=== PATIENT | male | born 1940 ===

== ENCOUNTER 2017-01-24 20:38 | Inpatient (IN) | payer OTHER, MEDICARE ==
[2017-01-24] MEDS ORDERED: Sodium Chloride 0.9% 500 ML IV STA (21:20)
[2017-01-24 21:53] LABS: BASO % 0.4 % (0.0-2.0); EOS # 0.3 K/uL (0.0-0.7); EOS % 3.5 % (0.0-4.0); HEMATOCRIT 33.2 % (35.0-51.0); LYMPH # 1.6 K/uL (1.0-4.3); LYMPH % 19.8 % (20.0-40.0); MEAN CELL VOLUME 91.8 fl (80.0-94.0); MEAN CORPUSCULAR HEMOGLOBIN 30.8 pg (27.0-31.0); MEAN CORPUSCULAR HGB CONC 33.6 g/dL (33.0-37.0); MEAN PLATELET VOLUME 9.6 fl (7.2-11.7); MONO # 0.6 K/uL (0.0-0.8); MONO % 6.8 % (0.0-10.0); NEUT # 5.7 K/uL (1.8-7.0); NEUT % 69.5 % (50.0-75.0); NRBC % 0.1 % (0.0-0.0); RED CELL DISTRIBUTION WIDTH 13.5 % (11.5-14.5); WHITE BLOOD COUNT 8.3 K/uL (4.8-10.8)
[2017-01-24 21:57] LABS: ALB/GLOB RATIO 1.1 (1.0-2.1); ALKALINE PHOSPHATASE 62 U/L (38-126); ALT/SGPT 23 U/L (21-72); AST/SGOT 19 U/L (17-59); BILIRUBIN,TOTAL 0.6 mg/dl (0.2-1.3); BLOOD UREA NITROGEN 22 mg/dl (9-20); CALCIUM 9.5 mg/dL (8.4-10.2); CARBON DIOXIDE 29 mmol/L (22-30); CHLORIDE 105 mmol/L (98-107); GFR AFRICAN-AMERICAN > 60; GLUCOSE,RANDOM 270 mg/dL (75-110); LIPASE 76 U/L (23-300); MAGNESIUM 1.5 MG/DL (1.6-2.3); PHOSPHOROUS 3.3 mg/dl (2.5-4.5); SODIUM 148 mmol/l (132-148); TOTAL PROTEIN 7.4 G/DL (6.3-8.2)
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
[2017-01-24 22:13] LABS: PARTIAL THROMBOPLASTIN TIME 28.2 SECONDS (23.3-32.5)
[2017-01-24 22:27] LABS: THYROID STIMULATING HORMONE 1.09 mIU/ML (0.46-4.68)
--- NOTE | 2017-01-24 23:58 | CT ---
EXAM: CT Head Without Intravenous Contrast CLINICAL HISTORY: 76 years old, male; Pain; Headache; Headache not specified; Additional info: AMS TECHNIQUE: Axial computed tomography images of the head/brain without intravenous contrast. This CT exam was performed using one or more of the following dose reduction techniques: automated exposure control, adjustment of the mA and/or kV according to patient size, and/or use of iterative reconstruction technique. Coronal and sagittal reformatted images were created and reviewed. EXAM DATE/TIME: Exam ordered 01/24/2017 9:20 PM COMPARISON: No relevant prior studies available. FINDINGS: Brain: ventricles are concordant with sulci, noting prominence. extensive periventricular hypoattenuation in keeping with small vessel ischemic disease. No hemorrhage. Ventricles: See above. Bones/joints: There are no fractures of the calvarium. Soft tissues: Unremarkable. Sinuses: Paranasal sinuses with no findings to suggest acute sinusitis. Mastoid air cells: Bilaterally, there is sclerosis of the mastoid air cells, there is no fluid to suggest an acute process however correlation and comparison to previous examinations from possible previous mastoiditis and/or procedures is recommended. Other findings: No previous imaging is available. IMPRESSION: No intracranial hemorrhage. No fractures. No evidence of acute sinusitis. Please compare to previous and correlate for previous pathology of the mastoid air cells, there is no fluid to suggest acute infection of the mastoids at this time. No abnormality suspicious for acute stroke by noncontrast head CT. If there is clinical suspicion for stroke, please note that other modalities are considered to be more sensitive than noncontrast head CT.
[2017-01-25 00:05] LABS: RBC URINE 1 /hpf (0-3); URINE BACTERIA RARE (<OCC); URINE BILIRUBIN NEGATIVE (NEGATIVE); URINE BLOOD NEGATIVE (NEGATIVE); URINE COLOR YELLOW (YELLOW); URINE GLUCOSE (UA) >=500 mg/dL (Normal); URINE KETONE TRACE mg/dL (NEGATIVE); URINE LEUKOCYTE ESTERASE NEG Leu/uL (Negative); URINE PROTEIN NEGATIVE (NEGATIVE); WBC URINE < 1 /hpf (0-5)
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
[2017-01-25] MEDS ORDERED: Magnesium Sulfate 2 GM in Sodium Chloride 0.9% 100 ML IVPB ONE (07:26)
[2017-01-25 09:34] LABS: BASO % 0.6 % (0.0-2.0); EOS # 0.3 K/uL (0.0-0.7); EOS % 4.3 % (0.0-4.0); HEMATOCRIT 34.7 % (35.0-51.0); LYMPH % 26.8 % (20.0-40.0); MEAN CELL VOLUME 92.7 fl (80.0-94.0); MEAN CORPUSCULAR HGB CONC 33.5 g/dL (33.0-37.0); MEAN PLATELET VOLUME 9.9 fl (7.2-11.7); MONO # 0.5 K/uL (0.0-0.8); MONO % 6.4 % (0.0-10.0); NEUT # 4.7 K/uL (1.8-7.0); NEUT % 61.9 % (50.0-75.0); RED CELL DISTRIBUTION WIDTH 13.5 % (11.5-14.5); WHITE BLOOD COUNT 7.6 K/uL (4.8-10.8)
[2017-01-25 10:04] LABS: BLOOD UREA NITROGEN 21 mg/dl (9-20); CALCIUM 9.5 mg/dL (8.4-10.2); CARBON DIOXIDE 24 mmol/L (22-30); CHLORIDE 108 mmol/L (98-107); GFR AFRICAN-AMERICAN > 60; GLUCOSE,RANDOM 173 mg/dL (75-110); POTASSIUM 3.8 MMOL/L (3.6-5.0); SODIUM 148 mmol/l (132-148)
--- NOTE | 2017-01-25 10:12 | RAD ---
HISTORY: Altered mental status COMPARISON: No prior. FINDINGS: LUNGS: Status the lungs are well inflated and clear. PLEURA: No significant pleural effusion identified, no pneumothorax apparent. CARDIOVASCULAR: Normal. OSSEOUS STRUCTURES: No significant abnormalities. VISUALIZED UPPER ABDOMEN: Normal. OTHER FINDINGS: None. IMPRESSION: No active pulmonary disease.
[2017-01-25 10:30] LABS: CARCINOEMBRYONIC ANTIGEN 3.3 ng/mL (0-3.0); PROSTATE SPECIFIC ANTIGEN 0.867 ng/ML (0.00-4.0)
[2017-01-25] MEDS: Enoxaparin 40 mg Syringe SC SCH (10:30)
[2017-01-25] MEDS: Insulin Lispro (humaLOG) 100 Units/ml Inj SC SCH ×3 (12:00→21:14)
[2017-01-25 17:23] LABS: CA 19-9 57.5 U/mL (0-37)
[2017-01-26] MEDS: Insulin Lispro (humaLOG) 100 Units/ml Inj SC SCH ×4 (06:56→22:12)
[2017-01-26] MEDS: Enoxaparin 40 mg Syringe SC SCH (09:08)
--- NOTE | 2017-01-26 09:40 | CP.PCM.PN ---
Subjective - Date & Time of Evaluation Date of Evaluation: 01/26/17 Time of Evaluation: 09:35 Objective - Vital Signs/Intake and Output Vital Signs (last 24 hours): Temp Pulse Resp BP Pulse Ox 97.4 F L 76 20 148/90 100 01/26/17 08:00 01/26/17 08:00 01/26/17 08:00 01/26/17 08:00 01/26/17 08:00 - Medications Medications: Current Medications Clopidogrel Bisulfate (Plavix) 75 mg PO DAILY [facility] Last Admin: 01/26/17 09:08 Dose: 75 mg Enoxaparin Sodium (Lovenox) 40 mg SC DAILY [facility] PRN Reason: Protocol Last Admin: 01/26/17 09:08 Dose: 40 mg Glipizide (Glucotrol) 5 mg PO BID [facility] Last Admin: 01/26/17 09:08 Dose: 5 mg Hydrochlorothiazide (Hydrodiuril) 25 mg PO DAILY [facility] Last Admin: 01/26/17 09:08 Dose: 25 mg Insulin Human Lispro (Humalog) 0 units SC [facility] PRN Reason: Protocol Last Admin: 01/26/17 06:56 Dose: 1 u - Labs Labs: 01/25/17 09:00 01/25/17 09:00 PT 11.6 SECONDS (9.6-11.2) H 01/24/17 21:41 INR 1.12 (0.92-1.08) H 01/24/17 21:41 APTT 28.2 SECONDS (23.3-32.5) 01/24/17 21:41 Assessment and Plan (1) Altered mental status Status: Acute (2) Diabetes mellitus Status: Chronic (3) Hypertension Status: Chronic (4) Weight loss Assessment & Plan: High CA 19-[address] Abdomen/Pelvis with PO/IV Contrast Fecal Occult Blood Status: Suspected (5) Falls Status: Acute
[2017-01-26] MEDS: Iohexol 240 (50 ml) PO ONE ×2 (13:49→15:03)
[2017-01-26] MEDS ORDERED: Iohexol 300 100 ML IJ ONE ×2 (15:13→15:20)
[2017-01-26] MEDS ORDERED: Sodium Chloride 0.9% 50 ML IV ONE (15:13)
[2017-01-27] MEDS: Insulin Lispro (humaLOG) 100 Units/ml Inj SC SCH ×4 (07:03→23:43)
[2017-01-27] MEDS: Enoxaparin 40 mg Syringe SC SCH (09:16)
--- NOTE | 2017-01-27 18:55 | CARD ---
APPROVED REPORT EKG Measurement Heart [id number] HI [id number] <Conclusion> Normal sinus rhythm Low voltage QRS Borderline ECG
--- NOTE | 2017-01-27 23:17 | CP.PCM.PN ---
Subjective - Date & Time of Evaluation Date of Evaluation: 01/27/17 Time of Evaluation: 16:15 Objective - Vital Signs/Intake and Output Vital Signs (last 24 hours): Temp Pulse Resp BP Pulse Ox 98.7 F 113 H 20 112/77 99 01/27/17 19:40 01/27/17 19:55 01/27/17 19:40 01/27/17 19:40 01/27/17 19:40 - Medications Medications: Current Medications Clopidogrel Bisulfate (Plavix) 75 mg PO DAILY [facility] Last Admin: 01/27/17 09:16 Dose: 75 mg Cyanocobalamin (Vitamin B12 1000 Mcg Tab) 1,000 mcg PO DAILY [facility] Last Admin: 01/27/17 09:16 Dose: 1,000 mcg Enoxaparin Sodium (Lovenox) 40 mg SC DAILY [facility] PRN Reason: Protocol Last Admin: 01/27/17 09:16 Dose: 40 mg Glipizide (Glucotrol) 5 mg PO BID [facility] Last Admin: 01/27/17 16:41 Dose: 5 mg Hydrochlorothiazide (Hydrodiuril) 25 mg PO DAILY [facility] Last Admin: 01/27/17 09:16 Dose: 25 mg Insulin Human Lispro (Humalog) 0 units SC [facility]S [facility] PRN Reason: Protocol Last Admin: 01/27/17 16:41 Dose: 3 u - Labs Labs: 01/25/17 09:00 01/25/17 09:00 PT 11.6 SECONDS (9.6-11.2) H 01/24/17 21:41 INR 1.12 (0.92-1.08) H 01/24/17 21:41 APTT 28.2 SECONDS (23.3-32.5) 01/24/17 21:41 Assessment and Plan (1) Altered mental status Status: Acute (2) Diabetes mellitus Status: Chronic (3) Hypertension Status: Chronic (4) Weight loss Status: Suspected (5) Falls Status: Acute
[2017-01-28 07:08] LABS: BASO % 0.3 % (0.0-2.0); EOS # 0.4 K/uL (0.0-0.7); EOS % 3.3 % (0.0-4.0); LYMPH # 2.1 K/uL (1.0-4.3); LYMPH % 18.4 % (20.0-40.0); MEAN CELL VOLUME 90.8 fl (80.0-94.0); MEAN CORPUSCULAR HEMOGLOBIN 31.2 pg (27.0-31.0); MEAN CORPUSCULAR HGB CONC 34.4 g/dL (33.0-37.0); MEAN PLATELET VOLUME 10.1 fl (7.2-11.7); MONO % 8.3 % (0.0-10.0); NEUT % 69.7 % (50.0-75.0); NRBC % 0.1 % (0.0-0.0); RED CELL DISTRIBUTION WIDTH 13.4 % (11.5-14.5)
[2017-01-28 07:42] LABS: BLOOD UREA NITROGEN 24 mg/dl (9-20); CALCIUM 9.7 mg/dL (8.4-10.2); CARBON DIOXIDE 26 mmol/L (22-30); CHLORIDE 98 mmol/L (98-107); GFR AFRICAN-AMERICAN > 60; GLUCOSE,RANDOM 145 mg/dL (75-110); POTASSIUM 3.9 MMOL/L (3.6-5.0); SODIUM 139 mmol/l (132-148)
[2017-01-28 07:52] LABS: WHITE BLOOD COUNT 11.5 K/uL (4.8-10.8)
[2017-01-28] MEDS: Insulin Lispro (humaLOG) 100 Units/ml Inj SC SCH ×4 (08:35→22:05)
[2017-01-28] MEDS: Enoxaparin 40 mg Syringe SC SCH (08:36)
--- NOTE | 2017-01-28 10:32 | CP.PCM.PN ---
Subjective - Date & Time of Evaluation Date of Evaluation: 01/28/17 Time of Evaluation: 10:10 Objective - Vital Signs/Intake and Output Vital Signs (last 24 hours): Temp Pulse Resp BP Pulse Ox 97.8 F 107 H 18 112/73 100 01/28/17 09:00 01/28/17 09:00 01/28/17 09:00 01/28/17 09:00 01/28/17 09:00 - Medications Medications: Current Medications Clopidogrel Bisulfate (Plavix) 75 mg PO DAILY [facility] Last Admin: 01/28/17 08:36 Dose: 75 mg Cyanocobalamin (Vitamin B12 1000 Mcg Tab) 1,000 mcg PO DAILY [facility] Last Admin: 01/28/17 08:36 Dose: 1,000 mcg Glipizide (Glucotrol) 5 mg PO BID [facility] Last Admin: 01/28/17 08:34 Dose: 5 mg Hydrochlorothiazide (Hydrodiuril) 25 mg PO DAILY [facility] Last Admin: 01/28/17 08:36 Dose: 25 mg Insulin Human Lispro (Humalog) 0 units SC [facility] PRN Reason: Protocol Last Admin: 01/28/17 08:35 Dose: 1 u - Labs Labs: 01/28/17 04:40 01/28/17 04:35 PT 11.6 SECONDS (9.6-11.2) H 01/24/17 21:41 INR 1.12 (0.92-1.08) H 01/24/17 21:41 APTT 28.2 SECONDS (23.3-32.5) 01/24/17 21:41 Assessment and Plan (1) Diabetes mellitus Status: Chronic (2) Weight loss Status: Suspected (3) Altered mental status Status: Acute (4) Hypertension Status: Chronic (5) Falls Status: Acute
[2017-01-28] MEDS ORDERED: Gadodiamide 287 MG/ML VIAL (15ML) IV ONE ×2 (13:10→14:56)
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
--- NOTE | 2017-01-28 19:45 | CP.PCM.CON ---
History of Present Illness - History of Present Illness History of Present Illness: GI consult requested by Dr Oliveira- History obtained from [employer] and chart as patient is not a good historian and does not answer questions appropriately. This is a 76 year old male, appearing older than stated age with a past medical history of HTN, hyperlipidemia and DM, who was brought to the ER by his daughter for recent altered mental status. As per chart patient has been increasingly confused and forgetful, with daughter additionally noting that he had seemed to be having issues with both urinary frequency and incontinence. As per family it was endorsed taht he has recently lost 80 lbs. I saw him at bedside this afternoon where he was eating chicken and broccoli and had just finished soup. He denies pain, diarrhea, constipation or yellow eyes. He denies recent rectal bleeding. He denies recent hospitalization. He states he came to the hospital to get better. He states he stays with a female partner at home and they dont have sexual relationships but are together. He had no abuse eugene on his body. Review of Systems - Review of Systems All systems: reviewed and no additional remarkable complaints except Review of Systems: Weakness Past Patient History - Past Medical History & Family History Past Medical History?: Yes Past Family History: Reviewed and not pertinent - Past Social History Alcohol: None Drugs: Denies - CARDIAC Hx Hypertension: Yes - NEUROLOGICAL HX Cerebrovascular Accident: Yes (unknown) - ENDOCRINE/METABOLIC Hx Endocrine Disorders: Yes Hx Diabetes Mellitus Type 2: Yes - HEMATOLOGICAL/ONCOLOGICAL Hx AIDS: No Hx Human Immunodeficiency Virus (HIV): No - MUSCULOSKELETAL/RHEUMATOLOGICAL Hx Falls: Yes - GENITOURINARY/GYNECOLOGICAL Hx Incontinence: Yes - PSYCHIATRIC Hx Substance Use: No - ANESTHESIA Hx Anesthesia: No Hx Anesthesia Reactions: No Hx Malignant Hyperthermia: No Has any member of the family had a problem w/ anesthesia?: No Meds Allergies/Adverse Reactions: Allergies Allergy/AdvReac Type Severity Reaction Status Date / Time No Known Allergies Allergy Verified 01/24/17 20:47 - Medications Medications: Current Medications Clopidogrel Bisulfate (Plavix) 75 mg PO DAILY [facility] Last Admin: 01/28/17 08:36 Dose: 75 mg Cyanocobalamin (Vitamin B12 1000 Mcg Tab) 1,000 mcg PO DAILY [facility] Last Admin: 01/28/17 08:36 Dose: 1,000 mcg Glipizide (Glucotrol) 5 mg PO BID [facility] Last Admin: 01/28/17 17:19 Dose: 5 mg Hydrochlorothiazide (Hydrodiuril) 25 mg PO DAILY [facility] Last Admin: 01/28/17 08:36 Dose: 25 mg Insulin Human Lispro (Humalog) 0 units SC ACHS [facility] PRN Reason: Protocol Last Admin: 01/28/17 17:19 Dose: 2 u Physical Exam - Constitutional Appears: Well, Non-toxic, No Acute Distress - Head Exam Head Exam: ATRAUMATIC, NORMAL INSPECTION, NORMOCEPHALIC Additional comments: Anicteric sclera - ENT Exam ENT Exam: Mucous Membranes Moist - Neck Exam Neck exam: Positive for: Normal Inspection - Respiratory Exam Respiratory Exam: Clear to Auscultation Bilateral, NORMAL BREATHING PATTERN - Cardiovascular Exam Cardiovascular Exam: REGULAR RHYTHM, RRR, +S1, +S2 - GI/Abdominal Exam GI & Abdominal Exam: Normal Bowel Sounds, Soft. absent: Tenderness Additional comments: Non tender and non guarding - Extremities Exam Extremities exam: Positive for: normal inspection - Neurological Exam Neurological exam: Alert, Oriented x3 Results - Vital Signs Recent Vital Signs: Last Vital Signs Temp 97.8 F 01/28/17 17:00 Pulse 100 H 01/28/17 17:00 Resp 22 01/28/17 17:00 BP 117/79 01/28/17 17:00 Pulse Ox 99 01/28/17 17:00 - Labs Result Diagrams: 01/28/17 04:40 01/28/17 04:35 Labs: Laboratory Results - last 24 hr 01/27/17 01/28/17 01/28/17 21:33 04:35 04:40 WBC 11.5 H D RBC 3.97 L Hgb 12.4 Hct 36.0 MCV 90.8 MCH 31.2 H MCHC 34.4 RDW 13.4 Plt Count 201 MPV 10.1 Neut % (Auto) 69.7 Lymph % (Auto) 18.4 L Dolores % (Auto) 8.3 Eos % (Auto) 3.3 Baso % (Auto) 0.3 Neut # 8.0 H Lymph # 2.1 Dolores # 1.0 H Eos # 0.4 Baso # 0.0 Sodium 139 Potassium 3.9 Chloride 98 Carbon Dioxide 26 Anion Gap 19 BUN 24 H Creatinine 0.8 Est GFR ( Amer) > 60 Est GFR (Non-Af Amer) > 60 POC Glucose (mg/dL) 161 H Random Glucose 145 H Calcium 9.7 Vitamin B12 334 01/28/17 01/28/17 01/28/17 05:25 11:11 15:59 WBC RBC Hgb Hct MCV MCH MCHC RDW Plt Count MPV Neut % (Auto) Lymph % (Auto) Dolores % (Auto) Eos % (Auto) Baso % (Auto) Neut # Lymph # Dolores # Eos # Baso # Sodium Potassium Chloride Carbon Dioxide Anion Gap BUN Creatinine Est GFR ( Amer) Est GFR (Non-Af Amer) POC Glucose (mg/dL) 167 H 449 H* 238 H Random Glucose Calcium Vitamin B12 - Imaging and Cardiology CT scan - abdomen Status: Image reviewed by me (Stool in colon and cholelithiasis. Mild CBD dilatation) Assessment & Plan - Assessment and Plan (Free Text) Assessment: This is a 76 yr old M with comorbidities admitted with new change in mental status and urinary incontinence and elevated CA 19-9. CT abdomen result in [facility] pending. LFT normal. As per family concern for weight loss and decreased appetite but I saw him eating. He has decreased B12 on biochemical testing that can contribute to mental status changes and extra pyramidal signs. Should get hematology consult. CA 19-[address] abdomen with IV contrast does not show any mass lesions although this was not dedicated pancreatic protocol CT scan. Will be prudent to ask daughter if patient has had endoscopic evaluation in the past. Plan: Hematology consult for low B 12 levels Elevated CA 19-9- CT scan with no pancreatic lesions Consider MRI brain Endoscopic evaluation history to be obtained from family in event of weight loss and elevated CA 19-9 Calorie count Neurology consult reviewed and appreciated Will follow - Date & Time Date: 01/28/17 Time: 19:45
--- NOTE | 2017-01-28 19:46 | MRI ---
EXAM: MR Head Without and With Intravenous Contrast CLINICAL HISTORY: 76 years old, male; Signs and symptoms; Altered mental status/memory loss TECHNIQUE: Magnetic resonance images of the head/brain without and with intravenous contrast in multiple planes. CONTRAST: 13 mL of OMNISCAN administered intravenously. EXAM DATE/TIME: 01/28/2017 11:01 AM COMPARISON: Prior head CT of 01/24/2017 FINDINGS: BRAIN: Very small 6 mm focus of restricted diffusion in the left parietal lobe, image 19 of series 3, compatible with focus of acute ischemia. This involves the subcortical white matter, and is most likely a lacunar/small vessel type infarct. There are no findings to suggest an acute, large territorial infarct. Punctate focus of chronic hemorrhage in the left high frontal lobe. Areas of increased T2 signal seen in the white matter bilaterally, nonspecific in appearance, but most likely representing chronic small vessel ischemic changes, in a patient of this age. Diffuse, age-related cortical atrophy and ventriculomegaly. No other significant abnormality identified. No acute extra-axial fluid collections visualized. No evidence of significant abnormal intracranial enhancement. No signal abnormality seen to suggest acute intracranial hemorrhage. VENTRICLES: See above. BONES/JOINTS: No acute abnormality identified. SINUSES: No evidence of sinus fluid levels. MASTOID AIR CELLS: No evidence of diffuse mastoiditis. IMPRESSION: - Findings compatible with a very small 6 mm focus of acute ischemia in the left parietal lobe white matter, most likely a lacunar/small vessel type infarct. - See above for remaining findings.
[2017-01-29] MEDS: Insulin Lispro (humaLOG) 100 Units/ml Inj SC SCH ×4 (06:52→22:02)
[2017-01-29 10:44] LABS: CHOLESTEROL 197 mg/dL (0-199)
--- NOTE | 2017-01-29 10:53 | CP.PCM.PN ---
Subjective - Date & Time of Evaluation Date of Evaluation: 01/29/17 Time of Evaluation: 10:15 Objective - Vital Signs/Intake and Output Vital Signs (last 24 hours): Temp Pulse Resp BP Pulse Ox 98.1 F 92 H 20 120/75 100 01/29/17 08:12 01/29/17 08:12 01/29/17 08:12 01/29/17 08:12 01/29/17 08:12 - Medications Medications: Current Medications Aspirin (Aspirin Chewable) 81 mg PO DAILY [facility] Atorvastatin Calcium (Lipitor) 40 mg PO HS [facility] Clopidogrel Bisulfate (Plavix) 75 mg PO DAILY [facility] Last Admin: 01/29/17 09:16 Dose: 75 mg Cyanocobalamin (Vitamin B12 1000 Mcg Tab) 1,000 mcg PO DAILY [facility] Last Admin: 01/29/17 09:16 Dose: 1,000 mcg Enoxaparin Sodium (Lovenox) 40 mg SC DAILY [facility] PRN Reason: Protocol Glipizide (Glucotrol) 5 mg PO BID [facility] Last Admin: 01/29/17 09:16 Dose: 5 mg Hydrochlorothiazide (Hydrodiuril) 25 mg PO DAILY [facility] Last Admin: 01/29/17 09:16 Dose: 25 mg Insulin Human Lispro (Humalog) 0 units SC ACHS [facility] PRN Reason: Protocol Last Admin: 01/29/17 06:52 Dose: 1 u - Labs Labs: 01/28/17 04:40 01/28/17 04:35 PT 11.6 SECONDS (9.6-11.2) H 01/24/17 21:41 INR 1.12 (0.92-1.08) H 01/24/17 21:41 APTT 28.2 SECONDS (23.3-32.5) 01/24/17 21:41 Assessment and Plan (1) Diabetes mellitus Status: Chronic (2) Weight loss Status: Suspected (3) Altered mental status Status: Acute (4) Hypertension Status: Chronic (5) Falls Status: Acute
--- NOTE | 2017-01-29 12:24 | CP.PCM.PN ---
Subjective - Date & Time of Evaluation Date of Evaluation: 01/29/17 Time of Evaluation: 12:22 - Subjective Subjective: RFV: Weight loss S: No acute events. No new complaints. Getting carotid dopplers. No bleeding. Objective - Vital Signs/Intake and Output Vital Signs (last 24 hours): Temp Pulse Resp BP Pulse Ox 97.4 F L 98 H 18 103/67 96 01/29/17 12:19 01/29/17 12:19 01/29/17 12:19 01/29/17 12:19 01/29/17 12:19 - Medications Medications: Current Medications Aspirin (Aspirin Chewable) 81 mg PO DAILY [facility] Atorvastatin Calcium (Lipitor) 40 mg PO HS [facility] Clopidogrel Bisulfate (Plavix) 75 mg PO DAILY [facility] Last Admin: 01/29/17 09:16 Dose: 75 mg Cyanocobalamin (Vitamin B12 1000 Mcg Tab) 1,000 mcg PO DAILY [facility] Last Admin: 01/29/17 09:16 Dose: 1,000 mcg Enoxaparin Sodium (Lovenox) 40 mg SC DAILY [facility] PRN Reason: Protocol Glipizide (Glucotrol) 5 mg PO BID [facility] Last Admin: 01/29/17 09:16 Dose: 5 mg Hydrochlorothiazide (Hydrodiuril) 25 mg PO DAILY [facility] Last Admin: 01/29/17 09:16 Dose: 25 mg Insulin Human Lispro (Humalog) 0 units SC ACHS [facility] PRN Reason: Protocol Last Admin: 01/29/17 06:52 Dose: 1 u - Labs Labs: 01/28/17 04:40 01/28/17 04:35 PT 11.6 SECONDS (9.6-11.2) H 01/24/17 21:41 INR 1.12 (0.92-1.08) H 01/24/17 21:41 APTT 28.2 SECONDS (23.3-32.5) 01/24/17 21:41 - Constitutional Appears: Chronically Ill - Head Exam Head Exam: ATRAUMATIC, NORMOCEPHALIC - Eye Exam Eye Exam: Normal appearance - ENT Exam ENT Exam: Mucous Membranes Moist, Normal Oropharynx - Respiratory Exam Respiratory Exam: NORMAL BREATHING PATTERN. absent: Respiratory Distress - Cardiovascular Exam Cardiovascular Exam: +S1, +S2 - GI/Abdominal Exam GI & Abdominal Exam: Soft. absent: Tenderness - Neurological Exam Neurological Exam: Altered Assessment and Plan - Assessment and Plan (Free Text) Assessment: 76 yr old Male admitted with altered mental status, urinary incontinence and elevated CA 19-9 as well as weight loss. 1. Weight loss 2. 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
--- NOTE | 2017-01-29 12:36 | US ---
PROCEDURE: Carotid vertebral duplex sonography HISTORY: stroke COMPARISON: None available. TECHNIQUE: Grayscale, color Doppler and spectral Doppler assessment of the carotid system bilaterally. This includes common carotid, internal carotid arteries Vertebral artery assessment with respect to direction of flow (antegrade or retrograde) FINDINGS: RIGHT carotid system: Assessment of plaque: No significant/ appreciable plaque formation. Isolated calcified plaque noted in the common carotid artery. Peak systolic ICA velocity: 74 cm/sec End-diastolic velocity: 20 cm/sec ICA/CCA ratio: 1.3 Vertebral artery flow: Antegrade LEFT carotid system: Assessment of plaque: Heterogeneous partially calcified plaque commencing distal left common carotid extending into the bulb region. Extensive calcified plaque in the proximal and mid left ICA. Peak systolic ICA velocity: 192 cm/sec End-diastolic velocity: 50 cm/sec ICA/CCA ratio: 2.6 Vertebral artery flow: Antegrade IMPRESSION: Right ICA degree of stenosis: Less than 50% Left ICA degree of stenosis: 50- 69%. Reference Internal Carotid Artery (ICA) Peak Systolic Velocity (PSV) for above: 1. Less than 50% stenosis less than 125 cm/s peak systolic velocity 2. 50-69% stenosis 125-230cm/s peak systolic velocity 3. Greater than 70% but less than near occlusion greater than 230 cm/s peak systolic velocity
[2017-01-29] MEDS: Enoxaparin 40 mg Syringe SC SCH (13:53)
--- NOTE | 2017-01-29 15:58 | CP.PCM.PN ---
Subjective - Date & Time of Evaluation Date of Evaluation: 01/29/17 Time of Evaluation: 15:56 - Subjective Subjective: Mr. López was seen and examined today at bedside. He continues to exhibit confused thought and speech patterns. He did not have any complaints and there were no acute events overnight. Objective - Vital Signs/Intake and Output Vital Signs (last 24 hours): Temp Pulse Resp BP Pulse Ox 97.4 F L 98 H 18 103/67 96 01/29/17 12:19 01/29/17 12:19 01/29/17 12:19 01/29/17 12:19 01/29/17 12:19 - Medications Medications: Current Medications Aspirin (Aspirin Chewable) 81 mg PO DAILY [facility] Last Admin: 01/29/17 13:52 Dose: Not Given Atorvastatin Calcium (Lipitor) 40 mg PO [facility] Clopidogrel Bisulfate (Plavix) 75 mg PO DAILY [facility] Last Admin: 01/29/17 09:16 Dose: 75 mg Cyanocobalamin (Vitamin B12 1000 Mcg Tab) 1,000 mcg PO DAILY [facility] Last Admin: 01/29/17 09:16 Dose: 1,000 mcg Enoxaparin Sodium (Lovenox) 40 mg SC DAILY [facility] PRN Reason: Protocol Last Admin: 01/29/17 13:53 Dose: 40 mg Glipizide (Glucotrol) 5 mg PO BID [facility] Last Admin: 01/29/17 09:16 Dose: 5 mg Hydrochlorothiazide (Hydrodiuril) 25 mg PO DAILY [facility] Last Admin: 01/29/17 09:16 Dose: 25 mg Insulin Human Lispro (Humalog) [address] [facility] PRN Reason: Protocol Last Admin: 01/29/17 13:53 Dose: 1 u - Labs Labs: 01/28/17 04:40 01/28/17 04:35 PT 11.6 SECONDS (9.6-11.2) H 01/24/17 21:41 INR 1.12 (0.92-1.08) H 01/24/17 21:41 APTT 28.2 SECONDS (23.3-32.5) 01/24/17 21:41 - Constitutional Appears: Well - Head Exam Head Exam: ATRAUMATIC, NORMAL INSPECTION, NORMOCEPHALIC - Eye Exam Eye Exam: EOMI, Normal appearance, PERRL - Neck Exam Neck Exam: Full ROM, Normal Inspection. absent: Lymphadenopathy - Respiratory Exam Respiratory Exam: Clear to Ausculation Bilateral, NORMAL BREATHING PATTERN - Cardiovascular Exam Cardiovascular Exam: REGULAR RHYTHM, +S1, +S2. absent: Murmur - GI/Abdominal Exam GI & Abdominal Exam: Soft, Normal Bowel Sounds. absent: Tenderness - Neurological Exam Neurological Exam: Abnormal Gait, Altered, CN II-XII Intact Neuro motor strength exam: Left Upper Extremity: 4, Right Upper Extremity: 4, Left Lower Extremity: 4, Right Lower Extremity: 4 Additional comments: Neurologically unchanged compared with yesterday's examination. Assessment and Plan (1) Ischemic stroke of frontal lobe Assessment & Plan: Although the stroke does not explain his chronic neurologic deficits, its location is consistent with an embolic etiology and could be part of an ongoing and frequent ischemic pattern. 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 I recommend a stroke work-up to include: CTA of the head/neck, echocardiogram with bubble study, and lipid panel. The patient should be started on aspirin 81 mg daily in addition to his current dose of Plavix. PT/ OT and speech therapy are recommended. Status: Acute (2) Ischemic stroke Status: Acute
[2017-01-29] MEDS: Sodium Chloride 0.9% 1,000 ML IV SCH (16:52)
[2017-01-30] MEDS: Sodium Chloride 0.9% 1,000 ML IV SCH ×2 (03:31→12:51)
[2017-01-30] MEDS: Insulin Lispro (humaLOG) 100 Units/ml Inj SC SCH ×4 (09:38→21:45)
[2017-01-30] MEDS: Enoxaparin 40 mg Syringe SC SCH (09:40)
--- NOTE | 2017-01-30 10:04 | CARD ---
APPROVED REPORT EXAM: Two-dimensional and M-mode echocardiogram with Doppler and color Doppler. Other Information Quality : PoorRhythm : NSR Technically limited study due to Only Sub Xphoid windo available INDICATION CVA/TIA Mitral Valve E/A ratio0.0 TDI E/Lateral E'0.0E/Medial E'0.0 LEFT VENTRICLE The left ventricle is normal size. There is normal left ventricular wall thickness. The left ventricular function is normal. The left ventricular ejection fraction is within the normal range. Regional wall motion could not be fully evaluated. Could not be assesed. RIGHT VENTRICLE The right ventricle is normal size. There is normal right ventricular wall thickness. The right ventricular systolic function is normal. ATRIA The left atrium size is normal. The right atrium size is normal. AORTIC VALVE The aortic valve is mildly sclerotic. No aortic regurgitation is present. Could not be assesed. MITRAL VALVE The mitral valve is normal in structure and function. There is no evidence of mitral valve prolapse. There is no mitral valve stenosis. There is no mitral valve regurgitation noted. TRICUSPID VALVE The tricuspid valve is normal in structure and function. There is no tricuspid valve regurgitation noted. PULMONIC VALVE The pulmonic valve is not visualized. Could not be assesed. GREAT VESSELS The aortic root displays mild sclerocalcific changes of the aortic root. Due to poor image quality, the IVC could not be assessed. PERICARDIAL EFFUSION There is a small loculated posterior pericardial effusion. <Conclusion> Only sub-xyphoid window was available for imging . So, the study was limited. The left ventricle is normal size. There is normal left ventricular wall thickness. The left ventricular function is normal. The left ventricular ejection fraction is within the normal range.
--- NOTE | 2017-01-30 15:16 | CP.PCM.PN ---
Subjective - Date & Time of Evaluation Date of Evaluation: 01/30/17 Time of Evaluation: 15:00 - Subjective Subjective: Patient seen walking around this morning. No complains. MRI brain shows new parietal small lacunar infarct for which he was started on dual anti platelet therapy. He had carotid doppler which showed ICA stenosis. Rest of dementia work up pending Objective - Vital Signs/Intake and Output Vital Signs (last 24 hours): Temp Pulse Resp BP Pulse Ox 97.7 F 91 H 20 114/75 99 01/30/17 12:32 01/30/17 12:32 01/30/17 12:32 01/30/17 12:32 01/30/17 12:32 Intake and Output: 01/30/17 01/30/17 06:59 18:59 Intake Total 1000 100 Balance 1000 100 - Medications Medications: Current Medications Aspirin (Aspirin Chewable) 81 mg PO DAILY [facility] Last Admin: 01/30/17 09:37 Dose: 81 mg Atorvastatin Calcium (Lipitor) 40 mg PO HS [facility] Last Admin: 01/29/17 21:28 Dose: 40 mg Clopidogrel Bisulfate (Plavix) 75 mg PO DAILY [facility] Last Admin: 01/30/17 09:39 Dose: 75 mg Cyanocobalamin (Vitamin B12 1000 Mcg Tab) 1,000 mcg PO DAILY [facility] Last Admin: 01/30/17 09:40 Dose: 1,000 mcg Enoxaparin Sodium (Lovenox) 40 mg SC DAILY [facility] PRN Reason: Protocol Last Admin: 01/30/17 09:40 Dose: 40 mg Glipizide (Glucotrol) 5 mg PO BID [facility] Last Admin: 01/30/17 09:38 Dose: 5 mg Hydrochlorothiazide (Hydrodiuril) 25 mg PO DAILY [facility] Last Admin: 01/30/17 09:39 Dose: 25 mg Sodium Chloride (Sodium Chloride 0.9%) 1,000 mls @ 100 mls/hr IV .Q10H [facility] Stop: 01/30/17 16:35 Last Admin: 01/30/17 12:51 Dose: 100 mls/hr Insulin Human Lispro (Humalog) 0 units SC ACHS [facility] PRN Reason: Protocol Last Admin: 01/30/17 12:50 Dose: 5 u - Labs Labs: 01/28/17 04:40 01/28/17 04:35 PT 11.6 SECONDS (9.6-11.2) H 01/24/17 21:41 INR 1.12 (0.92-1.08) H 01/24/17 21:41 APTT 28.2 SECONDS (23.3-32.5) 01/24/17 21:41 - Constitutional Appears: Well, Non-toxic, No Acute Distress - Head Exam Head Exam: ATRAUMATIC, NORMAL INSPECTION, NORMOCEPHALIC - ENT Exam ENT Exam: Mucous Membranes Moist, Normal Exam - Respiratory Exam Respiratory Exam: Clear to Ausculation Bilateral, NORMAL BREATHING PATTERN - Cardiovascular Exam Cardiovascular Exam: REGULAR RHYTHM, +S1, +S2. absent: Murmur - GI/Abdominal Exam GI & Abdominal Exam: Soft, Normal Bowel Sounds. absent: Tenderness - Extremities Exam Extremities Exam: Full ROM, Normal Capillary Refill, Normal Inspection. absent : Joint Swelling, Pedal Edema - Neurological Exam Neurological Exam: Alert, Awake Assessment and Plan - Assessment and Plan (Free Text) Assessment: 76 yr old Male admitted with altered mental status, urinary incontinence and elevated CA 19-9 as well as weight loss. MRI brain showing new lacunar parietal infarct now on dual anti platelet therapy. 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
--- NOTE | 2017-01-30 23:38 | CP.PCM.PN ---
Objective - Vital Signs/Intake and Output Vital Signs (last 24 hours): Temp Pulse Resp BP Pulse Ox 98 F 92 H 18 135/85 100 01/30/17 21:00 01/30/17 21:00 01/30/17 21:00 01/30/17 21:00 01/30/17 21:00 Intake and Output: 01/30/17 01/31/17 18:59 06:59 Intake Total 100 Balance 100 - Medications Medications: Current Medications Aspirin (Aspirin Chewable) 81 mg PO DAILY [facility] Last Admin: 01/30/17 09:37 Dose: 81 mg Atorvastatin Calcium (Lipitor) 40 mg PO HS [facility] Last Admin: 01/30/17 21:45 Dose: 40 mg Clopidogrel Bisulfate (Plavix) 75 mg PO DAILY [facility] Last Admin: 01/30/17 09:39 Dose: 75 mg Cyanocobalamin (Vitamin B12 1000 Mcg Tab) 1,000 mcg PO DAILY [facility] Last Admin: 01/30/17 09:40 Dose: 1,000 mcg Enoxaparin Sodium (Lovenox) 40 mg SC DAILY [facility] PRN Reason: Protocol Last Admin: 01/30/17 09:40 Dose: 40 mg Glipizide (Glucotrol) 5 mg PO BID [facility] Last Admin: 01/30/17 17:29 Dose: 5 mg Hydrochlorothiazide (Hydrodiuril) 25 mg PO DAILY [facility] Last Admin: 01/30/17 09:39 Dose: 25 mg Insulin Human Lispro (Humalog) 0 units SC [facility] PRN Reason: Protocol Last Admin: 01/30/17 21:45 Dose: Not Given - Labs Labs: 01/28/17 04:40 01/28/17 04:35 PT 11.6 SECONDS (9.6-11.2) H 01/24/17 21:41 INR 1.12 (0.92-1.08) H 01/24/17 21:41 APTT 28.2 SECONDS (23.3-32.5) 01/24/17 21:41 Assessment and Plan (1) Diabetes mellitus Status: Chronic (2) Weight loss Status: Suspected (3) Altered mental status Status: Acute (4) Hypertension Status: Chronic (5) Falls Status: Acute
[2017-01-31] MEDS: Insulin Lispro (humaLOG) 100 Units/ml Inj SC SCH ×4 (07:08→22:30)
[2017-01-31 07:19] LABS: HEMATOCRIT 35.3 % (35.0-51.0); MEAN CELL VOLUME 92.2 fl (80.0-94.0); MEAN CORPUSCULAR HGB CONC 33.6 g/dL (33.0-37.0); RED CELL DISTRIBUTION WIDTH 13.9 % (11.5-14.5); WHITE BLOOD COUNT 8.4 K/uL (4.8-10.8)
[2017-01-31 07:29] LABS: BLOOD UREA NITROGEN 22 mg/dl (9-20); CALCIUM 9.7 mg/dL (8.4-10.2); CARBON DIOXIDE 27 mmol/L (22-30); CHLORIDE 101 mmol/L (98-107); GFR AFRICAN-AMERICAN > 60; GLUCOSE,RANDOM 85 mg/dL (75-110); POTASSIUM 3.6 MMOL/L (3.6-5.0); SODIUM 140 mmol/l (132-148)
[2017-01-31] MEDS: Enoxaparin 40 mg Syringe SC SCH (08:59)
[2017-02-01] MEDS: Insulin Lispro (humaLOG) 100 Units/ml Inj SC SCH ×4 (07:51→22:00)
[2017-02-01] MEDS: Enoxaparin 40 mg Syringe SC SCH (09:46)
--- NOTE | 2017-02-01 17:25 | CP.PCM.PN ---
Subjective - Date & Time of Evaluation Date of Evaluation: 02/01/17 Time of Evaluation: 17:10 Objective - Vital Signs/Intake and Output Vital Signs (last 24 hours): Temp Pulse Resp BP Pulse Ox 97.8 F 88 20 124/72 100 02/01/17 15:47 02/01/17 15:47 02/01/17 15:47 02/01/17 15:47 02/01/17 15:47 - Medications Medications: Current Medications Aspirin (Aspirin Chewable) 81 mg PO DAILY [facility] Last Admin: 02/01/17 09:45 Dose: 81 mg Atorvastatin Calcium (Lipitor) 40 mg PO HS [facility] Last Admin: 02/01/17 00:20 Dose: 40 mg Clopidogrel Bisulfate (Plavix) 75 mg PO DAILY [facility] Last Admin: 02/01/17 09:47 Dose: 75 mg Cyanocobalamin (Vitamin B12 1000 Mcg Tab) 1,000 mcg PO DAILY [facility] Last Admin: 02/01/17 09:47 Dose: 1,000 mcg Glipizide (Glucotrol) 5 mg PO BID [facility] Last Admin: 02/01/17 17:14 Dose: 5 mg Hydrochlorothiazide (Hydrodiuril) 25 mg PO DAILY [facility] Last Admin: 02/01/17 09:46 Dose: 25 mg Insulin Human Lispro (Humalog) 0 units SC [facility] PRN Reason: Protocol Last Admin: 02/01/17 17:15 Dose: 3 u - Labs Labs: 01/31/17 05:40 01/31/17 05:40 PT 11.6 SECONDS (9.6-11.2) H 01/24/17 21:41 INR 1.12 (0.92-1.08) H 01/24/17 21:41 APTT 28.2 SECONDS (23.3-32.5) 01/24/17 21:41 Assessment and Plan (1) Diabetes mellitus Status: Chronic (2) Weight loss Status: Suspected (3) Altered mental status Status: Acute (4) Hypertension Status: Chronic (5) Falls Status: Acute
[2017-02-02] MEDS: Insulin Lispro (humaLOG) 100 Units/ml Inj SC SCH ×4 (08:56→22:31)
--- NOTE | 2017-02-02 18:07 | CP.PCM.PN ---
Subjective - Date & Time of Evaluation Date of Evaluation: 02/02/17 Time of Evaluation: 15:05 - Subjective Subjective: Seen and examined at the bed side. Patient staes feeling better. Denies fever or chills. Awaiting Rehab to exterminator termite placement. Objective - Vital Signs/Intake and Output Vital Signs (last 24 hours): Temp Pulse Resp BP Pulse Ox 97.9 F 89 20 102/68 100 02/02/17 16:00 02/02/17 16:00 02/02/17 16:00 02/02/17 16:00 02/02/17 16:00 - Medications Medications: Current Medications Aspirin (Aspirin Chewable) 81 mg PO DAILY [facility] Last Admin: 02/02/17 08:55 Dose: 81 mg Atorvastatin Calcium (Lipitor) 40 mg PO HS [facility] Last Admin: 02/01/17 22:00 Dose: Not Given Clopidogrel Bisulfate (Plavix) 75 mg PO DAILY [facility] Last Admin: 02/02/17 08:56 Dose: 75 mg Cyanocobalamin (Vitamin B12 1000 Mcg Tab) 1,000 mcg PO DAILY [facility] Last Admin: 02/02/17 08:56 Dose: 1,000 mcg Glipizide (Glucotrol) 5 mg PO BID [facility] Last Admin: 02/02/17 17:20 Dose: 5 mg Hydrochlorothiazide (Hydrodiuril) 25 mg PO DAILY [facility] Last Admin: 02/02/17 08:56 Dose: 25 mg Insulin Human Lispro (Humalog) 0 units SC [facility] PRN Reason: Protocol Last Admin: 02/02/17 17:22 Dose: 4 u - Labs Labs: 01/31/17 05:40 01/31/17 05:40 PT 11.6 SECONDS (9.6-11.2) H 01/24/17 21:41 INR 1.12 (0.92-1.08) H 01/24/17 21:41 APTT 28.2 SECONDS (23.3-32.5) 01/24/17 21:41 - Constitutional Appears: Well, No Acute Distress, Chronically Ill - Head Exam Head Exam: ATRAUMATIC, NORMAL INSPECTION, NORMOCEPHALIC - Eye Exam Eye Exam: EOMI, Normal appearance, PERRL Pupil Exam: NORMAL ACCOMODATION, PERRL - ENT Exam ENT Exam: Mucous Membranes Moist, Normal Exam - Neck Exam Neck Exam: Full ROM, Normal Inspection. absent: Lymphadenopathy - Respiratory Exam Respiratory Exam: Clear to Ausculation Bilateral, NORMAL BREATHING PATTERN - Cardiovascular Exam Cardiovascular Exam: REGULAR RHYTHM, +S1, +S2. absent: Murmur - GI/Abdominal Exam GI & Abdominal Exam: Soft, Normal Bowel Sounds. absent: Tenderness - Exam Bimanual exam: NORMAL BIMANUAL EXAM - Extremities Exam Extremities Exam: Full ROM, Normal Capillary Refill, Normal Inspection. absent : Joint Swelling, Pedal Edema - Back Exam Back Exam: NORMAL INSPECTION - Neurological Exam Neurological Exam: Abnormal Gait, Alert, Awake, CN II-XII Intact - Psychiatric Exam Psychiatric exam: Normal Affect, Normal Mood - Skin Skin Exam: Dry, Intact, Normal Color, Warm Assessment and Plan (1) Altered mental status Assessment & Plan: Acute CVA ASA Lipitor Pt/ot Rehab Status: Acute (2) Diabetes mellitus Assessment & Plan: Accucheck with coverage Status: Chronic (3) Weight loss Assessment & Plan: r/o Malignancy vs poor appetite Dementia with Behavioral Encourage to eat and use a feeder Dietitian eval TSH-normal Status: Suspected (4) Hypertension Assessment & Plan: Continue current care Status: Chronic (5) Falls Assessment & Plan: fall precautions Status: Acute
[2017-02-03] MEDS: Insulin Lispro (humaLOG) 100 Units/ml Inj SC SCH ×4 (09:24→21:53)
--- NOTE | 2017-02-03 22:58 | CP.PCM.PN ---
Subjective - Date & Time of Evaluation Date of Evaluation: 02/03/17 Time of Evaluation: 11:45 Objective - Vital Signs/Intake and Output Vital Signs (last 24 hours): Temp Pulse Resp BP Pulse Ox 98.8 F 90 18 105/56 L 98 02/03/17 20:04 02/03/17 20:04 02/03/17 20:04 02/03/17 20:04 02/03/17 20:04 - Medications Medications: Current Medications Aspirin (Aspirin Chewable) 81 mg PO DAILY [facility] Last Admin: 02/03/17 09:23 Dose: 81 mg Atorvastatin Calcium (Lipitor) 40 mg PO HS [facility] Last Admin: 02/03/17 21:15 Dose: 40 mg Clopidogrel Bisulfate (Plavix) 75 mg PO DAILY [facility] Last Admin: 02/03/17 09:23 Dose: 75 mg Cyanocobalamin (Vitamin B12 1000 Mcg Tab) 1,000 mcg PO DAILY [facility] Last Admin: 02/03/17 09:23 Dose: 1,000 mcg Glipizide (Glucotrol) 5 mg PO BID [facility] Last Admin: 02/03/17 16:29 Dose: 5 mg Hydrochlorothiazide (Hydrodiuril) 25 mg PO DAILY [facility] Last Admin: 02/03/17 09:23 Dose: 25 mg Insulin Human Lispro (Humalog) 0 units SC [facility] PRN Reason: Protocol Last Admin: 02/03/17 21:53 Dose: Not Given - Labs Labs: 01/31/17 05:40 01/31/17 05:40 PT 11.6 SECONDS (9.6-11.2) H 01/24/17 21:41 INR 1.12 (0.92-1.08) H 01/24/17 21:41 APTT 28.2 SECONDS (23.3-32.5) 01/24/17 21:41 Assessment and Plan (1) Altered mental status Status: Acute (2) Diabetes mellitus Status: Chronic (3) Weight loss Status: Suspected (4) Hypertension Status: Chronic (5) Falls Status: Acute
[2017-02-04 08:05] VITALS: RESP 20
[2017-02-04] MEDS: Insulin Lispro (humaLOG) 100 Units/ml Inj SC SCH ×2 (08:46→11:50)
[2017-02-04 16:03] VITALS: BP 100/65; PULSE 87; TEMP 97.4; O2SAT 98
--- NOTE | 2017-02-21 16:08 | CT ---
PROCEDURE: CT Abdomen and Pelvis with contrast HISTORY: Weight loss high, CEA and CA19 COMPARISON: None. TECHNIQUE: The Contrast dose: 95 cc Omnipaque 300 Radiation dose: Total exam DLP = 403.73 MGy-cm. This CT exam was performed using one or more of the following dose reduction techniques: Automated exposure control, adjustment of the mA and/or kV according to patient size, and/or use of iterative reconstruction technique. FINDINGS: LOWER THORAX: The lung bases are clear. LIVER: The liver is normal in size and there is homogenous enhancement. There is fatty infiltration. No gross lesion or ductal dilatation. GALLBLADDER AND BILE DUCTS: There are multiple gall stones. PANCREAS: The pancreas is normal in size and there is homogenous enhancement. No gross lesion or ductal dilatation. SPLEEN: The spleen is normal is size and there is homogenous enhancement. ADRENALS: The adrenal gland is normal in size without discrete nodule. KIDNEYS AND URETERS: The kidneys are normal in size and there is homogenous enhancement. No hydronephrosis. No solid mass. VASCULATURE: There are atherosclerotic aortoiliac calcifications. No aortic aneurysm. BOWEL: The small bowel loops are normal in caliber. There is large amount of stool in the colon. No obstruction. No gross mural thickening. APPENDIX: Normal appendix. PERITONEUM: Unremarkable. No free fluid. No free air. LYMPH NODES: Unremarkable. No enlarged lymph nodes. BLADDER: Unremarkable. REPRODUCTIVE: There is mild enlargement of the prostate gland. BONES: No acute fracture. Within normal limits for the patient'ss age. OTHER FINDINGS: None. IMPRESSION: 1. Constipation. No bowel obstruction. 2. Cholelithiasis. 3. Fatty liver.
== END 2017-02-04 17:30 | DRG 65 ==
LOC: H.ER 20:38 → H.ERHOLD 01-25 00:25 → H.TEL 01-25 04:08
PROVIDERS: ADMIT Internal Medicine; ATTEND Internal Medicine
DX: I63.8 Other cerebral infarction (principal); Z68.1 Body mass index [BMI] 19.9 or less, adult; I65.29 Occlusion and stenosis of unspecified carotid artery; R32 Unspecified urinary incontinence; E11.9 Type 2 diabetes mellitus without complications; I10 Essential (primary) hypertension; E78.5 Hyperlipidemia, unspecified; I25.10 Atherosclerotic heart disease of native coronary artery without angina pectoris; E78.00 Pure hypercholesterolemia, unspecified; R63.4 Abnormal weight loss; Z91.81 History of falling; Z79.02 Long term (current) use of antithrombotics/antiplatelets; Z87.891 Personal history of nicotine dependence